=== PATIENT | female | born 1965 | race Caucasian/White ===

== ENCOUNTER 2018-12-22 07:49 | Inpatient (IN) | payer MEDICARE ==
[2018-12-22] MEDS ORDERED: SODIUM CHLORIDE IRRIG SOLUTION 3,000 ML IRRIG.SOLN IR ONE (08:48)
[2018-12-22] MEDS ORDERED: LIDOCAINE HCL 2% PF 100MG/5ML VIAL IJ ONE (08:48)
[2018-12-22] MEDS ORDERED: LIDOCAINE HCL 1% PF 300MG/30ML VIAL ONE (08:48)
[2018-12-22] MEDS ORDERED: ACETAMINOPHEN 1,000 MG/100 ML INJ IV ONE ×2 (08:48→09:52)
[2018-12-22] MEDS ORDERED: BUPIV. HCL 0.25% (2.5MG/ML)/EPI. (1:200,000) PF 30 ML VIAL IJ ONE (08:48)
[2018-12-22] MEDS ORDERED: DEXAMETHASONE SODIUM PHOSPHATE 10 MG/ML VIAL ONE (08:48)
[2018-12-22] MEDS ORDERED: SEVOFLURANE 250 ML LIQUID IH ONE (08:48)
[2018-12-22] MEDS ORDERED: ENOXAPARIN SODIUM 40 MG/0.4 ML DISP.SYRIN SQ ONE (08:48)
[2018-12-22] MEDS ORDERED: ROCURONIUM BROMIDE 10 MG/ML 5ML VIAL ONE (08:48)
[2018-12-22] MEDS ORDERED: ceFAZolin SODIUM 1 GM VIAL ONE (08:48)
[2018-12-22] MEDS ORDERED: LACTATED RINGERS 1,000 ML IV.SOLN IV ONE ×2 (08:48)
[2018-12-22] MEDS ORDERED: MIDAZOLAM HCL 2 MG/2 ML VIAL ONE (08:48)
[2018-12-22] MEDS ORDERED: PROPOFOL 200 MG/20 ML VIAL IV ONE (08:48)
[2018-12-22] MEDS ORDERED: ONDANSETRON HCL/PF 4 MG/ 2ML VIAL ONE (08:48)
[2018-12-22] MEDS ORDERED: PROMETHAZINE HCL 25 MG/ML VIAL ONE (14:09)
[2018-12-22] MEDS ORDERED: 0.9 % SODIUM CHLORIDE 1,000 ML IV ONE (14:46)
[2018-12-22] MEDS ORDERED: PROMETHAZINE HCL 25 MG in 0.9 % SODIUM CHLORIDE 50 ML IV PRN (14:50)
[2018-12-22] MEDS ORDERED: IPRATROPIUM/ALBUTEROL SULFATE 3 ML AMPUL.NEB NEB PRN (14:50)
[2018-12-22] MEDS ORDERED: ACETAMINOPHEN 1,000 MG/100 ML INJ IV PRN (14:50)
[2018-12-22] MEDS ORDERED: ONDANSETRON HCL/PF 4 MG/ 2ML VIAL IVP PRN (14:50)
--- NOTE | 2018-12-22 14:50 | History and Physical Report ---
History of Present Illnes - History of Present Illness Reason for Visit: S/P LSG History of Present Illness: Patient is a 53-year-old female who has tried multiple diets and exercise programs with no success. She has always struggled with her weight which has worsened since having children. Patient and surgeon decided to proceed with gastric sleeve procedure. Procedure went well- She will be admitted and monitored s/p surgical intervention. Patient has been on a liquid diet prior to surgery so she is a risk of dehydration s/p surgery. She will be admitted for IV hydration to help hydrate patient until she is able to tolerate a sufficient oral intake, will treat pain with IV medication until patient is able to tolerate oral meds, IV antiemetics to help reduce episodes of nausea and/or vomiting. Patient will be monitored closely using telemetry s/p surgery d/t HTN. Will encourage incentive spirometer for asthma/COPD. Patient appears very uncomfortable s/p surgery. - Past Medical History Cardiac: HTN, Hyperlipidemia Pulmonary: Asthma, COPD, Sleep Apnea DIRECTOR BUILDING: Seizure (10 years ago) Psych: Anxiety, Addictions, Depression, Other (chronic opioid use) Musculoskeletal: Chronic low back pain Endocrine: Hypothyroidism, obesity - Past Surgical History Past Surgical History: Other (Chiari malformation), Tubal Ligation, Tonsillectomy, Other (Back, Neck, polypectomy, thyroidectomy, esophageal dilation, cardiac cath) - Past Family History Mother Family History: DM Father Family History: - Past Social History Smoke: No, Quit (13 YEARS AGO) Alcohol: None Drugs: None Lives: With Family Domestic Violence: Negative - Health Maintenance Health Maintenance: Cholesterol Influenza Vaccine: No Pneumonia Vaccine: No Resuscitation Status: FULL CODE Review of Systems - Review of Systems Constitutional: Weakness Eyes: vision change ENT: negative: Nose Discharge, Throat Pain Respiratory: SOB with Excertion, Wheezing Cardiovascular: Chest Pain (WITH EXERTION) Gastrointestinal: Nausea, Vomiting, Abdominal Pain Genitourinary: negative: Dysuria Musculoskeletal: Back Pain Skin: negative: Rash Neurological: negative: Weakness - Medications/Allergies Allergies/Adverse Reactions: Allergies Allergy/AdvReac Type Severity Reaction Status Date / Time No Known Allergies Allergy Unverified 12/22/18 14:57 Home Medications: Home Medications Albuterol Sulfate [Albuterol Sulfate Hfa] 2 puff IH Q4H PRN 12/22/18 Buprenorphine HCl/Naloxone HCl [Suboxone 8 mg-2 mg Tablet] 1 each SL TID 12/22/18 Carvedilol [Coreg] 1 tab PO BID 12/22/18 Cyclobenzaprine HCl 10 mg PO DAILY 12/22/18 Levothyroxine Sodium [Levoxyl] 88 mcg PO DAILY 12/22/18 Linaclotide [Linzess] 145 mcg PO DAILY 12/22/18 Omeprazole 20 mg PO DAILY 12/22/18 Potassium Chloride 10 meq PO DAILY 12/22/18 Sertraline HCl 50 mg PO DAILY 12/22/18 Exam - Exam General: Alert, Oriented to Person, Oriented to Place, Oriented to Time, Moderate distress, Morbidly Obese HEENT: Atraumatic, PERRLA, Mouth Mucous membr. moist/[place], Nose Mucous membr. moist/[place] Neck: Normal Range of Motion Carotids: NO BRUIT Lungs: Clear to auscultation, Normal air movement Cardiovascular: Regular rate, Normal S1, Normal S2 Peripheral Edema: NONE Peripheral Pulses: 2+ Abdomen: Soft, Decreased Bowel Sounds Integumentary: Warm, Dry, Pale, Other (Incisions without redness/erythema/drainage; skin adhesive intact) Extremities: No edema, Normal pulses, No tenderness/swelling Neurological: Strength Equal Bilat, Generalized Weakness Psych/Mental Status: Mental status NL Assessment/Plan - Assessment/Plan (1) S/P laparoscopic sleeve gastrectomy Status: Acute Plan: Plan to admit for IV hydration, IV pain meds, and IV antiemetics. Lovenox and SCDs to help prevent DVTs, IS and frequent ambulation will be implemented. Start ice chips and advance diet as tolerated. (2) Morbid obesity due to excess calories Status: Acute Plan: Patient is s/p gastric sleeve. We will assist patient with implementing gastric sleeve diet protocol starting with ice chips and clear liquids and advancing as tolerated. (3) COPD (chronic obstructive pulmonary disease) Status: Acute Assessment: LCTA; Plan: Will monitor closely; will check pulse ox; use incentive spirometry; will order home inhalers (4) Obstructive sleep apnea Status: Acute Plan: Patient will use CPAP (5) Anxiety and depression Status: Acute Assessment: not symptomatic at this time Plan: Will hold home meds at this time and monitor closely (6) Chronic back pain Status: Acute Qualifiers: Back pain location: low back pain Assessment: patient has chronic low back pain Plan: Will treat with pain medication prn (7) Nausea and vomiting Status: Acute Plan: Pepcid IV BID ordered; IV antiemetics, and IVFs VTE Assessment - RISK FACTOR SCORE VTE RISK FACTOR SCORES: AGE 40-60 YEARS, OBESITY, MAJOR SURGERY/ANESTHESIA TIME > 1 HOUR - RISK VTE HIGH RISK: SCORE OF 3-4 (RISK PROXIMAL DVT 4-8%) PROPHYLAXIS NEEDED (Will administer lovenox, use Incentive spirometer, wear SCDs, and frequent ambulation)
[2018-12-22 15:06] VITALS: BMI 38.0
[2018-12-22] MEDS: 0.9 % SODIUM CHLORIDE 1,000 ML IV SCH ×2 (15:06→21:39)
[2018-12-22] MEDS: FAMOTIDINE 20 MG/2 ML VIAL IVP SCH (20:17)
[2018-12-22] MEDS: ceFAZolin SODIUM 1 GM in 0.9 % SODIUM CHLORIDE 50 ML IV SCH (20:23)
[2018-12-23] MEDS: HYDROcodone-ACETAMIN 7.5-325/15ML SOLN UD CUP PO PRN ×3 (01:00→10:59)
[2018-12-23] MEDS ORDERED: KETOROLAC TROMETHAMINE 30 MG/1ML VIAL ONE (03:40)
[2018-12-23] MEDS: 0.9 % SODIUM CHLORIDE 1,000 ML IV SCH ×3 (04:05→17:21)
[2018-12-23] MEDS: ceFAZolin SODIUM 1 GM in 0.9 % SODIUM CHLORIDE 50 ML IV SCH (04:33)
[2018-12-23 06:18] LABS: BASOPHILS % 0.2 % (0.0-1.5); NEUTROPHILS # 4.3 # k/uL (1.4-7.7)
[2018-12-23 06:19] LABS: eGFR (Non-African) > 60
--- NOTE | 2018-12-23 07:15 | Inpatient Progress Note ---
Subjective - Required Recertification Statement I anticipate X number of days because-include discharge plan: 1 - Review of Systems Events since last encounter: Patient is lying in bed this morning. She states that she did not get much sleep. She was having a lot of discomfort last night. She states that pain is improving. She has had some nausea and moderate discomfort from the gas. She denies any chest pain or shortness of breath. She has been up ambulating in the halls and using incentive spirometer while awake. 13:35 received call from Helga HE from [place]- patient is to continue on Suboxone per PCP 13:[address] [place]; will prescribe to continue and use home Suboxone 8mg TID; Pharmacist notified. General: Denies: Chills HEENT: Denies: Head Aches, Dysphasia Pulmonary: Denies: Dyspnea Cardiovascular: Denies: Chest Pain, Edema Gastrointestinal: Nausea, Abdominal Pain. Denies: Vomiting Genitourinary: Denies: Dysuria Musculoskeletal: Back Pain Neurological: Denies: Weakness Objective - Exam Vitals and I&O: Vital Signs Temp 97.8 F 12/23/18 05:28 Pulse 102 H 12/23/18 06:00 Resp 20 12/23/18 06:00 BP 134/76 12/23/18 05:28 Pulse Ox 94 12/23/18 06:00 Intake & Output 12/22/18 12/22/18 12/23/18 11:59 23:59 11:59 Intake Total 20 Output Total 0 875 Balance 20 -875 Weight 100.698 kg Intake: Oral 20 Output: Urine 0 875 Other: Voiding Method Toilet Toilet # Voids 1 3 # Bowel Movements 0 General: Alert, Oriented to Person, Oriented to Place, Oriented to Time, Mild distress, Morbidly Obese HEENT: Atraumatic, PERRLA, Mouth Mucous membr. moist/[place], Nose Mucous membr. moist/[place] Neck: Supple, +2 carotid pulse wo bruit Lungs: Clear to auscultation, Normal air movement, Speaks full Sentences Cardiovascular: Regular rate, Normal S1, Normal S2 Abdomen: Soft, Decreased Bowel Sounds Extremities: No edema, Normal pulses, No tenderness/swelling Skin: Normal, [place], Warm, Dry, Other (incisions are without redness, erythema, drainage; skin adhesive intact) Neurological: Normal gait, Normal speech, Strength Equal Bilat Psych/Mental Status: Mental status NL, Mood NL, Appropriate Affect, Intact Judgment - Results Results: Laboratory Results WBC 5.30 K/ul (4.00-12.00) 12/23/18 04:40 RBC 3.12 M/ul (3.90-5.20) L 12/23/18 04:40 Hgb 8.8 g/dL (11.5-16.0) L 12/23/18 04:40 Hct 25.6 % (34.5-46.5) L 12/23/18 04:40 MCV 82.0 fl (80.0-100.0) 12/23/18 04:40 MCH 28.1 pg (28.0-34.0) 12/23/18 04:40 MCHC 34.2 g/dL (30.0-36.0) 12/23/18 04:40 RDW 15.6 % (11.3-14.3) H 12/23/18 04:40 Plt Count 180 K/mm3 (130-400) 12/23/18 04:40 Neut % (Auto) 80.9 % (39.0-79.0) H 12/23/18 04:40 Lymph % (Auto) 14.9 % (16.0-50.0) L 12/23/18 04:40 [place] % (Auto) 3.3 % (0.0-11.0) 12/23/18 04:40 Eos % (Auto) 0.7 % (0.0-6.8) 12/23/18 04:40 Baso % (Auto) 0.2 % (0.0-1.5) 12/23/18 04:40 Neut # (Auto) 4.3 # k/uL (1.4-7.7) 12/23/18 04:40 Lymph # (Auto) 0.8 # k/uL (0.6-4.0) 12/23/18 04:40 [place]ett # (Auto) 0.2 # k/uL (0.0-0.9) 12/23/18 04:40 Eos # (Auto) 0.0 # k/uL (0.0-0.6) 12/23/18 04:40 Baso # (Auto) 0.0 # k/uL (0.0-0.5) 12/23/18 04:40 Sodium 141 mmol/L (137-145) 12/23/18 04:40 Potassium 4.5 mmol/L (3.5-5.1) 12/23/18 04:40 Chloride 104 mmol/L (98-107) 12/23/18 04:40 Carbon Dioxide 25 mmol/L (22-30) 12/23/18 04:40 Anion Gap 16.5 12/23/18 04:40 BUN 16 mg/dL (7-17) 12/23/18 04:40 Creatinine 0.81 mg/dL (0.52-1.04) 12/23/18 04:40 Estimated Creat Clear 148 12/23/18 04:40 Est GFR ( Amer) > 60 (60-) 12/23/18 04:40 Est GFR (Non-Af Amer) > 60 (60-) 12/23/18 04:40 Glucose 154 mg/dL (74-106) H 12/23/18 04:40 Calcium 8.6 mg/dL (8.4-10.2) 12/23/18 04:40 Total Bilirubin 0.4 mg/dL (0.2-1.3) 12/23/18 04:40 AST 70 U/L (15-46) H 12/23/18 04:40 ALT 44 U/L (13-69) 12/23/18 04:40 Alkaline Phosphatase 83 U/L (38-126) 12/23/18 04:40 Total Protein 6.5 g/dL (6.3-8.2) 12/23/18 04:40 Albumin 3.6 g/dL (3.5-5.0) 12/23/18 04:40 Assessment/Plan - Assessment/Plan (1) Anemia Status: Acute Qualifiers: Anemia type: other cause Assessment: Patient hgb from 12 prior to surgery to 8- will recheck hgb this afternoon Plan: Will check H & H this afternoon (2) Anxiety and depression Status: Acute Assessment: Patient denies any symptoms at this time; will continue to monitor Plan: Will continue to monitor (3) COPD (chronic obstructive pulmonary disease) Status: Acute Assessment: Patient has SOA with exertion d/t obesity; LCTA; No SOA at rest Plan: Duonebs ordered as needed; will continue to monitor; will check pulse ox (4) Chronic back pain Status: Acute Qualifiers: Back pain location: low back pain Assessment: Patient doing well at this time; mild low back pain Plan: will continue patients suboxone (5) Morbid obesity due to excess calories Status: Acute Assessment: Patient tolerating ice chips and water; some nausea Plan: Will advance diet to clear liquids today (6) Nausea and vomiting Status: Acute Assessment: Patient still experiencing some nausea- no vomiting Plan: Will continue with IV Zofran and phenergan; IV pepcid BID (7) Obstructive sleep apnea Status: Acute Assessment: Patient doing well; pulse ox >95% Plan: Use CPAP (8) S/P laparoscopic sleeve gastrectomy Status: Acute Assessment: Patient experiencing nausea; has been ambulating, wearing SCDs while in bed, using incentive spirometry, patient receiving lovenox to prevent DVT Plan: Patient getting IV fluids for hydration, IV pain meds, and IV antiemetics. Lovenox and SCDs to help prevent DVTs, IS and frequent ambulation will be implemented. Patient eating ice chips and will advance diet to clear liquids as tolerated once nausea and vomiting is controlled. Will continue with Pepcid IV BID for GI upset
[2018-12-23] MEDS: FAMOTIDINE 20 MG/2 ML VIAL IVP SCH (08:46)
--- NOTE | 2018-12-23 09:24 | Operative Note ---
PREOPERATIVE DIAGNOSIS: 1. Morbid obesity. 2. Type 2 diabetes. 3. Hyperlipidemia. 4. Hypertension. POSTOPERATIVE DIAGNOSIS: 1. Morbid obesity. 2. Type 2 diabetes. 3. Hyperlipidemia. 4. Hypertension. 5. Hiatal hernia. PROCEDURES PERFORMED: 1. Laparoscopic vertical sleeve gastrectomy. 2. Laparoscopic repair of hiatal hernia. 3. Upper gastrointestinal endoscopy. SURGEON: Donnell Harris M.D. INDICATIONS FOR PROCEDURE: Leigh Leger is a 53-year-old female who presented with features of morbid obesity. She was noted to have a weight of 226 pounds with a BMI of 38.8 with the above-listed comorbidities. The patient was advised laparoscopic vertical sleeve gastrectomy and possible hiatal hernia repair. The patient showed understanding and agreed to proceed. DESCRIPTION OF PROCEDURE: After explaining to the patient in detail and informed consent was obtained, the patient was identified in the preoperative holding area. The patient was transferred to the operating room and was placed in supine position. Sequential compressive devices were placed for DVT prophylaxis. Preoperative antibiotics were given. After induction of anesthesia, the abdomen was prepped and draped in a sterile fashion. Through a left upper quadrant 1-cm incision, and using Optiview technique, the peritoneal cavity was entered and pneumoperitoneum was created. Thereafter, under direct vision, a 5-mm trocar was placed in the left midabdomen, a 12-mm trocar was placed in the right midabdomen, and another 5-mm trocar was placed in the right subcostal region. Through a 1-cm incision in the epigastrium, a Yesenia retractor was introduced and the left lobe of the liver was retracted. On initial inspection, the patient was noted to have a 4 cm hiatal hernia. I started to take down the gastroepiploic vessels using a LigaSure. This was continued superiorly. The short gastric vessels were taken down. The gastrophrenic ligament was divided and the Angle of His was mobilized. Distally, the gastroepiploic vessels were taken down up to about 4 cm proximal to the pylorus. Once this was completed, I then repaired the hiatal hernia. Using pars flaccida technique, the right brandy was identified. The phrenoesophageal membrane was divided anteriorly. The sac was then dissected off the right brandy anteriorly, and then along the left brandy. I then did a posterior dissection and I continued dissection superiorly to mobilize adequate length of the esophagus. Once this was completed, I then performed a posterior cruroplasty with a [id number] Ethibond suture. A #36 [place] orogastric Hurst bougie was introduced into the stomach and this was placed along the lesser curve of the stomach. The stomach was then divided in a vertical fashion with multiple Endo ILANA Covidien Black Load Staplers. The first firing was directed outwards towards the greater curvature to prevent any narrowing of the incisura. Subsequent firings were directed towards the Angle of His to create a loose sleeve around the #36 [place]i bougie. Absolute hemostasis was ensured. The Hurst Bougie was then removed. An upper GI endoscopy was performed. The scope was introduced into the stomach and the stomach was suctioned out. An air leak test was performed by instilling air into the stomach and by irrigation of fluid along the staple line. There was no leak noted. The stomach was then suctioned out and absolute hemostasis was ensured. The Yesenia retractor was removed. Approximately 10 mL of a lidocaine-Marcaine mix was instilled under the left hemidiaphragm. The sleeve gastrectomy specimen was removed. The 15-mm port site incision was closed with 0 Vicryl using a fascial closure device. The skin was closed with 4-0 Monocryl for all the incisions. Dermabond was applied. The patient was stable at the end of the procedure. The patient was awakened from anesthesia and was transferred to the recovery room in stable condition. ESTIMATED BLOOD LOSS: Approximately 25 mL. CONDITION OF THE PATIENT: Stable. FLUIDS GIVEN: Per Anesthesia note. SPECIMEN(S) SENT: Sleeve gastrectomy specimen. COMPLICATIONS: None. ANESTHESIA: General. Donnell Harris M.D. JOSEPH/jaye (Please copy [facility] provider when applicable) Job #[id number] ENDER
[2018-12-23 12:26] LABS: BASOPHILS % 0.2 % (0.0-1.5); NEUTROPHILS # 5.5 # k/uL (1.4-7.7)
[2018-12-23] MEDS ORDERED: BUPRENORPHINE HCL SL SCH (13:45)
[2018-12-23] MEDS ORDERED: NALOXONE HCL SL SCH (13:45)
[2018-12-23] MEDS ORDERED: [UNRECOGNIZED DRUG - OTHER] SL SCH (13:45)
[2018-12-23] MEDS: NALOXONE HCL SL SCH ×2 (14:05→17:21)
[2018-12-23] MEDS: [UNRECOGNIZED DRUG - OTHER] SL SCH ×2 (14:05→17:21)
[2018-12-23] MEDS: BUPRENORPHINE HCL SL SCH ×2 (14:05→17:21)
[2018-12-23] MEDS ORDERED: KETOROLAC TROMETHAMINE 30 MG/1ML VIAL IV PRN (14:50)
[2018-12-23] MEDS ORDERED: ENOXAPARIN SODIUM 40 MG/0.4 ML DISP.SYRIN SQ SCH (14:52)
[2018-12-23 18:24] LABS: BASOPHILS % 0.3 % (0.0-1.5); NEUTROPHILS # 5.7 # k/uL (1.4-7.7)
[2018-12-23] MEDS ORDERED: ACETAMINOPHEN ORAL SOLUTION 325 MG/10.15 ML CUP PO ONE (18:39)
[2018-12-23] MEDS ORDERED: 0.9 % SODIUM CHLORIDE 250 ML IV ONE (19:41)
[2018-12-23] MEDS ORDERED: ACETAMINOPHEN ORAL SOLUTION 325 MG/10.15 ML CUP ONE (21:29)
[2018-12-24] MEDS: FAMOTIDINE 20 MG/2 ML VIAL IVP SCH ×2 (02:42→09:08)
[2018-12-24 07:14] LABS: eGFR (Non-African) > 60
[2018-12-24 08:32] LABS: BASOPHILS % 0.4 % (0.0-1.5); NEUTROPHILS # 4.1 # k/uL (1.4-7.7)
--- NOTE | 2018-12-24 08:47 | Discharge Summary ---
Discharge Summary - Discharge [facility] Admission Date: 12/22/18 Discharge Date: 12/24/18 Discharge To: Home History of Present Illness: Patient is a 53-year-old female who has tried multiple diets and exercise programs with no success. She has always struggled with her weight which has worsened since having children. Patient and surgeon decided to proceed with gastric sleeve procedure. Procedure went well- She will be admitted and monitored s/p surgical intervention. Patient has been on a liquid diet prior to surgery so she is a risk of dehydration s/p surgery. She will be admitted for IV hydration to help hydrate patient until she is able to tolerate a sufficient oral intake, will treat pain with IV medication until patient is able to tolerate oral meds, IV antiemetics to help reduce episodes of nausea and/or vomiting. Patient will be monitored closely using telemetry s/p surgery d/t HTN. Will encourage incentive spirometer for asthma/COPD. Patient appears very uncomfortable s/p surgery. Condition at Discharge: Stable Home Medications: Ambulatory Orders Medication Instructions Recorded Albuterol Sulfate [Albuterol 2 puff IH Q4H PRN 12/22/18 Sulfate Hfa] Buprenorphine HCl/Naloxone HCl 1 each SL TID 12/22/18 [Suboxone 8 mg-2 mg Tablet] Carvedilol [Coreg] 1 tab PO BID 12/22/18 Cyclobenzaprine HCl 10 mg PO DAILY 12/22/18 Levothyroxine Sodium [Levoxyl] 88 mcg PO DAILY 12/22/18 Linaclotide [Linzess] 145 mcg PO DAILY 12/22/18 Omeprazole 20 mg PO DAILY 12/22/18 Potassium Chloride 10 meq PO DAILY 12/22/18 Sertraline HCl 50 mg PO DAILY 12/22/18 Consultations this Visit: None Procedures this Visit: Other (S/P LSG) Allergies/Adverse Reactions: Allergies Allergy/AdvReac Type Severity Reaction Status Date / Time No Known Allergies Allergy Unverified 12/22/18 14:57 Discharge Summary: Patient is a 53-year-old female that underwent the gastric sleeve procedure. She had some issues with nausea and dry heaves but has done well. She has been very cooperative with her care by ambulating frequently, using her incentive spirometer, and wearing her SCDs while in bed. She has been compliant with her diet during hospitalization. She is having minimal discomfort at this time and minimal nausea- she has is passing gas and belching. She is aware of discharge instructions and what she can and cannot do post surgical- she is aware of the strict diet she must follow to decrease discomfort and have success after procedure. She has family support and family will be taking her home- medications written by surgeon given to patient. She feels ready to go home. Patient denies any dizziness, chest pain or shortness of breath Hospital Course: Patient received IV pain medications, antiemetics, and IVF and was transitioned to oral. She has been up ambulating and using incentive spirometer. - Final Diagnosis (1) Anemia Problems: Corrected; received 2 units of PRBCs Right or Left: Right (2) Anxiety and depression Problems: Stable Right or Left: Right (3) COPD (chronic obstructive pulmonary disease) Problems: stable; will continue on home meds Right or Left: Right (4) Chronic back pain Problems: stable; will continue on suboxone Right or Left: Right (5) Morbid obesity due to excess calories Problems: Continue with bariatric sleeve diet- clear liquids today and start full liquids tomorrow; protein shake 80-100 grams protein Right or Left: Right (6) Nausea and vomiting Problems: Script for antiemetic given Right or Left: Right (7) Obstructive sleep apnea Problems: continue home treatment with cpap Right or Left: Right (8) S/P laparoscopic sleeve gastrectomy Problems: Incision without redness or drainage, positive bowel sounds, minimal discomfort, belching and flatus, no extremity pain or edema, LCTA Right or Left: Right
[2018-12-24] MEDS: [UNRECOGNIZED DRUG - OTHER] SL SCH (09:04)
[2018-12-24] MEDS: NALOXONE HCL SL SCH (09:04)
[2018-12-24] MEDS: BUPRENORPHINE HCL SL SCH (09:04)
[2018-12-24 09:45] VITALS: BP 140/76
== END 2018-12-24 10:50 | disposition home or self-care (01) | DRG 621 ==
LOC: OPSURG 07:49 → SOUTH 14:40
PROVIDERS: ADMIT Nurse Practitioner Family; ATTEND Nurse Practitioner Family
PROC: 0DB64Z3 Excision of Stomach, Percutaneous Endoscopic Approach, Vertical (ICD-10-PCS; principal; 2018-12-22)
PROC: 0BQT4ZZ Repair Diaphragm, Percutaneous Endoscopic Approach (ICD-10-PCS; 2018-12-22)
DX: E66.01 Morbid (severe) obesity due to excess calories (principal); I10 Essential (primary) hypertension; E78.5 Hyperlipidemia, unspecified; J44.9 Chronic obstructive pulmonary disease, unspecified; F41.9 Anxiety disorder, unspecified; F32.9 Major depressive disorder, single episode, unspecified; G89.29 Other chronic pain; G47.33 Obstructive sleep apnea (adult) (pediatric); M54.5 Low back pain; E11.9 Type 2 diabetes mellitus without complications; K44.9 Diaphragmatic hernia without obstruction or gangrene; D64.9 Anemia, unspecified; E89.0 Postprocedural hypothyroidism; Z68.38 Body mass index [BMI] 38.0-38.9, adult; Z79.899 Other long term (current) drug therapy; Z79.890 Hormone replacement therapy; Z87.891 Personal history of nicotine dependence; Z98.51 Tubal ligation status; Y83.6 Removal of other organ (partial) (total) as the cause of abnormal reaction of the patient, or of later complication, without mention of misadventure at the time of the procedure
CPT/HCPCS: 80053; 85025; 86885; 86900; 86901; 86920; 97116; 97530; A9270; J0690; J1885; J2405; J2550; J7030; J7050; 43235; 43775; 99221; 99231; 99238; J1650; J2001; J2250; J2704; P9040; J7120; S1016